=== PATIENT | female | born 1990 | race Caucasian/White ===

== ENCOUNTER 2019-04-15 01:07 | Emergency (ER) | payer OTHER ==
[~2019-04-15] VITALS: Ht 167.6 cm; Wt 81.7 kg
[~2019-04-15 01:07] MED LIST: CANASA1000 MG RECTAL; CELEXA20 MG PO; CELEXA40 MG PO; CHLORTABS4 MG PO; CIPRO500 MG PO; FIORICET 50-301 EACH PO; FLAGYL500 MG PO; IBUPROFEN 200200 M1 PO; MULTIVITAMINS1 EAC7 PO; OXYBUTYNIN CHLO15 MG PO; PERCOCET PO; PRILOSEC 10MG C10 M1; PRILOSEC 20 MG20 MG PO; PRIVIGEN50 ML IV; TYLENOL325 MG PO; VENTOLIN HFA 1818 GM INH; VITAFOL-OB+DHA1 EACH PO; VYVANSE20 MG PO; ZYVOX600 MG PO; [UNRECOGNIZED DRUG - REMARK] PO
[2019-04-15 02:52] VITALS: BP 114/56
== END 2019-04-15 02:54 | disposition home or self-care (01) ==
LOC: ER 01:07
DX: G43.909 Migraine, unspecified, not intractable, without status migrainosus (principal); F32.9 Major depressive disorder, single episode, unspecified; K21.9 Gastro-esophageal reflux disease without esophagitis; A69.20 Lyme disease, unspecified; Z90.89 Acquired absence of other organs; Z98.890 Other specified postprocedural states; Z88.1 Allergy status to other antibiotic agents